=== PATIENT | male | born 1975 | race Caucasian/White ===

== ENCOUNTER 2017-06-05 05:34 | Day surgery (SDC) | payer OTHER ==
[~2017-06-05] VITALS: Ht 180.3 cm; Wt 98.2 kg
[2017-06-05] VITALS (10 sets, daily range): BP systolic 122–143; BP diastolic 66–81; PULSE 62–78; TEMP 97.7–97.9
[~2017-06-05 05:34] MED LIST: FLONASEALLERGY NAS; SINGULAIR 110 MG/TAB PO; XALATAN EYE DROPS OU; ZYRTEC 10MG10 MG PO
[2017-06-05] MEDS ORDERED: PERCOCET 325 MG1 TA2 PO (07:03)
[2017-06-05] MEDS ORDERED: ASPI325T6 PO (07:03)
[2017-06-05] MEDS ORDERED: MOBIC15 MG PO (09:54)
[2017-06-05] MEDS ORDERED: ZOFRAN 4MG T4 MG/TAB PO (09:54)
[2017-06-05] MEDS ORDERED: COLACE 100100 MG/CAP PO (09:54)
== END 2017-06-05 13:05 | disposition home or self-care (01) ==
LOC: SDCO 05:34
DX: S83.511A Sprain of anterior cruciate ligament of right knee, initial encounter (principal); S83.241A Other tear of medial meniscus, current injury, right knee, initial encounter; X50.1XXA Overexertion from prolonged static or awkward postures, initial encounter; Z98.52 Vasectomy status; Z83.3 Family history of diabetes mellitus; Z82.61 Family history of arthritis
CPT/HCPCS: C1713; J0171; J0360; J0690; J1100; J1170; J2175; J2250; J2405; J2704; J3010; J7120

== ENCOUNTER → 2021-04-07 | Outpatient (CLI) | payer BC ==
[~2021-04-07] MED LIST changes: +ASPI325T6 PO; +COLACE 100100 MG/CAP PO; +MOBIC15 MG PO; +PERCOCET 325 MG1 TA2 PO; +ZOFRAN 4MG T4 MG/TAB PO
[2021-04-07 07:55] LABS: BASO % 0.6 % (0.0-2.0); EOS # 0.1 (0.0-0.7); GRAN # 2.9 (1.4-6.5); GRAN % 60.7 % (42.2-75.2); HEMATOCRIT 43.2 % (42.0-52.0); HEMOGLOBIN 15.4 g/dl (13.5-18.0); LYMPH # 1.3 (1.2-3.4); LYMPH % 26.6 % (20.0-51.0); MEAN CELL VOLUME 88 fl (80.0-100.0); MEAN CORPUSCULAR HEMOGLOBIN 32 pg (27.0-31.0); MEAN CORPUSCULAR HGB CONC 36 g/dl (33.0-37.0); MEAN PLATELET VOLUME 9.7 fl (7.4-10.4); MONO # 0.4 (0.1-0.6); MONO % 8.9 % (1.7-9.3); PLATELET COUNT 232 K/mm3 (130-400); RED BLOOD COUNT 4.89 M/mm3 (4.20-5.60); REDCELL DISTRIBUTION WIDTH-CV 12.2 % (11.5-14.5)
[2021-04-07 08:01] LABS: ALBUMIN 4.5 gm/dL (3.5-5.0); BILIRUBIN,TOTAL 1.2 mg/dL (0.0-1.0); CALCIUM 8.9 mg/dL (8.4-10.2); CHOLESTEROL RISK RATIO 3.8; CREATININE, serum 0.83 (0.66-1.25); POTASSIUM 4.1 mmol/L (3.4-5.0); TOTAL PROTEIN 8.1 gm/dL (6.4-8.2)
[2021-04-07 09:12] LABS: THYROID STIMULATING HORMONE 4.004 uIU/mL (0.350-4.940)
== END ==
LOC: COL.LAB 04-06 15:06
PROVIDERS: Family Medicine
DX: Z00.00 Encounter for general adult medical examination without abnormal findings (principal); E78.2 Mixed hyperlipidemia